=== PATIENT | male | born 2000 ===

== ENCOUNTER 2021-01-28 13:22 | Outpatient (RCR) | payer BC, SELFPAY ==
--- NOTE | 2021-01-31 10:12 | PC.NURSE ---
Patient did not show up to the program this morning. Called patient at 0930, 0945, and 1000. Patient did not answer his phone and I was not able to leave a voicemail message as patient's voicemail is full. Called patients mother Jennifer who is listed as patient's emergency contact. She stated her son was up this morning and was getting ready to go on the zoom meeting. She stated she is not sure what happened although she mentioned he was having issues with his tag writer. Jennifer stated she would call Vasu's father who is home with Vasu to find out what happened and will have Vasu call me back.
--- NOTE | 2021-02-01 09:46 | PC.NURSE ---
Vasu did not show up to the program again today. Called Vasu at 0915 and 929 and he did not answer the phone at that time and unable to leave a message as his voicemail continues to be full ( I let patient know this yesterday regarding his VM being full). I called Vasu again at 45 and he answered the phone and stated he would be logging on now as his mother just woke him up. I told Vasu that he would need a re-assessment at this point and to call Lorie to set that up. He agreed to f/u with Lorie, I gave Vasu Lorie's number to call. He denied any safety issues.
== END 2021-02-01 09:46 | disposition home or self-care (01) ==
LOC: HO.PHPA 13:22
PROVIDERS: Visit Provider Psychiatry & Neurology Psychiatry
DX: F33.1 Major depressive disorder, recurrent, moderate (principal); F41.9 Anxiety disorder, unspecified; Z72.89 Other problems related to lifestyle
CPT/HCPCS: 90791

== ENCOUNTER → 2024-05-26 09:41 | Outpatient (BNVA) | payer SELFPAY | PROVIDERS: Visit Provider Internal Medicine ==